=== PATIENT | female | born 1970 | race African-American/Black ===

== ENCOUNTER 2019-01-27 12:32 | Inpatient (IN) | payer OTHER ==
[~2019-01-27] VITALS: Ht 160 cm; Wt 52.2 kg
[2019-01-27] MEDS ORDERED: SODIUM CHLORIDE 0.9% 1,000 ML IV ONE (12:59)
[2019-01-27] MEDS ORDERED: ONDANSETRON HCL 4MG/2ML INJ IV STA (12:59)
[2019-01-27] MEDS ORDERED: MORPHINE SULFATE 4 MG/ML CPJ (NOT FOR IM USE) IV STA (12:59)
[2019-01-27 13:22] LABS: BASOPHILS % 1.1 % (0.0-2.0); EOSINOPHILS % 4.2 % (0.0-5.0); HEMATOCRIT. 40.2 % (36.0-48.0); HEMOGLOBIN. 13.6 g/dL (12.0-16.0); LYMPHOCYTES % 16.1 % (20.0-50.0); MEAN CORPUSCULAR HEMOGLOBIN 29.3 pg (28.0-32.0); MEAN CORPUSCULAR VOLUME 86.9 fL (81.0-99.0); MEAN PLATELET VOLUME 7.6 fl (7.4-10.4); NEUTROPHILS % 74.6 % (40.0-76.0); PLATELET 285 x1000/uL (130-400); RED BLOOD CELL COUNT 4.63 mill/uL (4.2-5.4); RED CELL DISTRIBUTION WIDTH 13.5 % (11.6-14.6)
[2019-01-27 13:28] LABS: CHLORIDE 106 mEq/L (98-107)
[2019-01-27 13:29] LABS: PROTHROMBIN TIME 10.6 sec (9.6-11.0)
[2019-01-27] MEDS ORDERED: LIDOCAINE HCL 1% 20ML VIAL (Pyxis) INJ ONE (14:09)
[2019-01-27] MEDS ORDERED: SODIUM BICARBONATE 4% (2.4MEQ) 5ML VIAL IV ONE (14:09)
[2019-01-27 14:43] LABS: HCG SCREEN NEGATIVE
[2019-01-27 16:45] VITALS: BP 116/75
[2019-01-27] MEDS ORDERED: CLONIDINE 0.1MG TABLET PO PRN (17:15)
[2019-01-27] MEDS ORDERED: ACETAMINOPHEN 650MG SUPP PR PRN (17:15)
[2019-01-27] MEDS ORDERED: POTA-9 MT (17:45)
[2019-01-27] MEDS ORDERED: DOCU-150 MT (17:45)
[2019-01-27] MEDS ORDERED: PANT40TA4 PO (17:45)
[2019-01-27] MEDS ORDERED: GABA-290 PO (17:50)
[2019-01-27] MEDS ORDERED: CARB100C4 PO (17:50)
[2019-01-27] MEDS ORDERED: FURO40TA5 PO (17:50)
[2019-01-27] MEDS ORDERED: CARB200T PO (17:50)
[2019-01-27] MEDS ORDERED: DIAZ10TA4 PO (17:50)
[2019-01-27] MEDS ORDERED: LINA290C PO (17:50)
[2019-01-27] MEDS ORDERED: ONDA8TAB6 PO (17:50)
[2019-01-27] MEDS ORDERED: HYDR8TAB44 PO (17:50)
[2019-01-27] MEDS: SODIUM CHLORIDE 0.9% 1,000 ML IV SCH ×2 (17:52→21:08)
[2019-01-27] MEDS: HYDROMORPHONE HCL/PF 2MG/ML CPJ IV PRN (18:06)
[2019-01-27 20:00] VITALS: BP 123/61
[2019-01-27] MEDS ORDERED: INFLUENZA VIRUS VACCINE(AFLURIA) 0.5ML SYR IM ONE (21:00)
[2019-01-27] MEDS ORDERED: PNEUMOCOCCAL 23-VAL P-SAC VAC 0.5 ML IM ONE (21:00)
[2019-01-27] MEDS: MORPHINE SULFATE 2 MG/ML CPJ (NOT FOR IM USE) IV PRN (21:10)
[2019-01-27] MEDS: ONDANSETRON HCL 4MG/2ML INJ IV PRN (21:10)
[2019-01-28] VITALS: BP 103/55
[2019-01-28] MEDS: HYDROMORPHONE HCL/PF 2MG/ML CPJ IV PRN ×6 (00:58→23:39)
[2019-01-28 04:00] VITALS: BP 112/84
[2019-01-28] MEDS: ONDANSETRON HCL 4MG/2ML INJ IV PRN ×2 (04:50→19:33)
[2019-01-28] MEDS: MORPHINE SULFATE 2 MG/ML CPJ (NOT FOR IM USE) IV PRN (04:51)
[2019-01-28 05:49] LABS: CHLORIDE 110 mEq/L (98-107)
[2019-01-28 05:54] LABS: BASOPHILS % 0.8 % (0.0-2.0); EOSINOPHILS % 7.2 % (0.0-5.0); HEMATOCRIT. 34.2 % (36.0-48.0); HEMOGLOBIN. 11.5 g/dL (12.0-16.0); LYMPHOCYTES % 22.9 % (20.0-50.0); MEAN CORPUSCULAR HEMOGLOBIN 29.4 pg (28.0-32.0); MEAN CORPUSCULAR VOLUME 87.5 fL (81.0-99.0); MONOCYTES % 5.8 % (2.0-8.0); NEUTROPHILS % 63.3 % (40.0-76.0); PLATELET 251 x1000/uL (130-400); RED BLOOD CELL COUNT 3.91 mill/uL (4.2-5.4); RED CELL DISTRIBUTION WIDTH 13.4 % (11.6-14.6)
[2019-01-28] MEDS ORDERED: SODIUM CHL 0.9% + KCL 20MEQ/L 1,000 ML IV SCH (07:45)
[2019-01-28] MEDS ORDERED: POTASSIUM CHLORIDE INJ 40 MEQ in SODIUM CHLORIDE 0.9% 500 ML IV SCH (09:00)
[2019-01-28] MEDS: MULTIVITAMINS,THER W-MINERALS TABLET PO SCH (09:05)
[2019-01-28] MEDS ORDERED: OXYCODONE HCL/ACETAMINOPHEN 5/325MG TABLET PO PRN (10:15)
[2019-01-28 12:00] VITALS: BP 133/71
[2019-01-28 16:00] VITALS: BP 119/70
[2019-01-28 20:00] VITALS: BP 121/67
[2019-01-29] VITALS: BP 126/67
[2019-01-29 04:00] VITALS: BP 136/79
[2019-01-29] MEDS: HYDROMORPHONE HCL/PF 2MG/ML CPJ IV PRN ×5 (04:15→20:52)
[2019-01-29] MEDS: ONDANSETRON HCL 4MG/2ML INJ IV PRN ×5 (04:15→20:51)
[2019-01-29 08:00] VITALS: BP 142/58
[2019-01-29] MEDS: MULTIVITAMINS,THER W-MINERALS TABLET PO SCH (08:49)
[2019-01-29 12:00] VITALS: BP 117/66
[2019-01-29 16:00] VITALS: BP 154/83
[2019-01-29 20:00] VITALS: BP 122/73
[2019-01-30] VITALS (7 sets, daily range): BP systolic 107–124; BP diastolic 54–77
[2019-01-30] MEDS: HYDROMORPHONE HCL/PF 2MG/ML CPJ IV PRN ×6 (00:09→17:12)
[2019-01-30] MEDS: ONDANSETRON HCL 4MG/2ML INJ IV PRN ×4 (00:10→13:14)
[2019-01-30] MEDS: MULTIVITAMINS,THER W-MINERALS TABLET PO SCH (09:00)
== END 2019-01-30 19:40 | disposition hospice, inpatient (51) | DRG 251 ==
LOC: ER 12:32 → 6EST 15:16 → EDBEDREQ 15:19 → EDBEDREQSVC 15:19 → ENRESERV 15:29
PROVIDERS: ADMIT Hospitalist; ATTEND Hospitalist
PROC: 02HV33Z Insertion of Infusion Device into Superior Vena Cava, Percutaneous Approach (ICD-10-PCS; principal; 2019-01-27)
PROC: B548ZZA Ultrasonography of Superior Vena Cava, Guidance (ICD-10-PCS; 2019-01-27)
PROC: B5181ZA Fluoroscopy of Superior Vena Cava using Low Osmolar Contrast, Guidance (ICD-10-PCS; 2019-01-27)
DX: R10.13 Epigastric pain (principal); C79.9 Secondary malignant neoplasm of unspecified site; C90.00 Multiple myeloma not having achieved remission; C18.9 Malignant neoplasm of colon, unspecified; Z51.5 Encounter for palliative care; R62.7 Adult failure to thrive; Z85.841 Personal history of malignant neoplasm of brain; Z85.038 Personal history of other malignant neoplasm of large intestine; Z68.20 Body mass index [BMI] 20.0-20.9, adult; Z88.8 Allergy status to other drugs, medicaments and biological substances
CPT/HCPCS: 36415; 36573; 71045; 83605; 84703; 90686; 90732; 93005; 99285; C1725; J1170; J2270; J2405; J3480; J3490; J7030; J7040; J7060

== ENCOUNTER 2019-02-20 13:46 | Inpatient (IN) | payer OTHER ==
[~2019-02-20] VITALS: Ht 162.6 cm; Wt 52.2 kg
[~2019-02-20 13:46] MED LIST: CARB100C4 PO; CARB200T PO; DIAZ10TA4 PO; DOCU-150 MT; FURO40TA5 PO; GABA-290 PO; HYDR8TAB44 PO; LINA290C PO; ONDA8TAB6 PO; PANT40TA4 PO; POTA-9 MT
[2019-02-20] MEDS ORDERED: ONDANSETRON HCL 4MG/2ML INJ IV STA (14:33)
[2019-02-20] MEDS ORDERED: SODIUM CHLORIDE 0.9% 1,000 ML IV ONE (14:33)
[2019-02-20] MEDS ORDERED: MORPHINE SULFATE 4 MG/ML CPJ (NOT FOR IM USE) IV STA (14:33)
[2019-02-20 14:59] LABS: EOSINOPHILS % 4.4 % (0.0-5.0); HEMATOCRIT. 36.1 % (36.0-48.0); LYMPHOCYTES % 16.8 % (20.0-50.0); MEAN CORPUSCULAR HEMOGLOBIN 29.1 pg (28.0-32.0); MEAN CORPUSCULAR VOLUME 87.7 fL (81.0-99.0); MEAN PLATELET VOLUME 7.8 fl (7.4-10.4); MONOCYTES % 8.2 % (2.0-8.0); NEUTROPHILS % 69.6 % (40.0-76.0); PLATELET 254 x1000/uL (130-400); RED BLOOD CELL COUNT 4.11 mill/uL (4.2-5.4); RED CELL DISTRIBUTION WIDTH 13.9 % (11.6-14.6)
[2019-02-20 15:03] LABS: CHLORIDE 106 mEq/L (98-107)
[2019-02-20 15:04] LABS: PARTIAL THROMBOPLASTIN TIME 27.9 sec (23.4-31.0); PROTHROMBIN TIME 10.7 sec (9.6-11.0)
[2019-02-20 15:11] LABS: HCG SCREEN NEGATIVE
[2019-02-20] MEDS ORDERED: MORPHINE SULFATE 4 MG/ML CPJ (NOT FOR IM USE) IV ONE (18:00)
[2019-02-20] MEDS ORDERED: DIPHENHYDRAMINE 50MG/ML VIAL IV ONE (18:00)
[2019-02-20 18:06] LABS: CLARITY URINE CLOUDY (CLEAR); COLOR URINE YELLOW (YELLOW); KETONES URINE NEGATIVE (NEGATIVE); LEUKOCYTE ESTERASE URINE 1+ (NEGATIVE); NITRITE URINE NEGATIVE (NEGATIVE); OCCULT BLOOD URINE NEGATIVE (NEGATIVE); PH URINE 7.5 (4.5-8.0); PROTEIN URINE NEGATIVE (NEGATIVE); SPECIFIC GRAVITY URINE 1.013 (1.005-1.030); UROBILINOGEN URINE 0.2 E.U./dL (0.2-1.0)
[2019-02-20] MEDS ORDERED: CEFTRIAXONE 1 G PREMIX 50 ML IV ONE (18:30)
[2019-02-20 22:00] VITALS: BP 170/82
[2019-02-20] MEDS ORDERED: HYDROCODONE/ACETAMINOPHEN 5/325MG TABLET PO PRN (22:15)
[2019-02-20] MEDS: ONDANSETRON HCL 4MG/2ML INJ IV PRN (23:13)
[2019-02-20] MEDS: HYDROMORPHONE HCL/PF 2MG/ML CPJ IV PRN (23:14)
[2019-02-21] VITALS: BP 175/71
[2019-02-21 04:00] VITALS: BP 115/82
[2019-02-21] MEDS: HYDROMORPHONE HCL/PF 2MG/ML CPJ IV PRN ×6 (04:09→22:06)
[2019-02-21 07:08] LABS: BASOPHILS % 1.1 % (0.0-2.0); EOSINOPHILS % 6.8 % (0.0-5.0); HEMATOCRIT. 32.5 % (36.0-48.0); HEMOGLOBIN. 10.9 g/dL (12.0-16.0); LYMPHOCYTES % 29.3 % (20.0-50.0); MEAN CORPUSCULAR HEMOGLOBIN 29.4 pg (28.0-32.0); MEAN CORPUSCULAR VOLUME 87.7 fL (81.0-99.0); MEAN PLATELET VOLUME 8.3 fl (7.4-10.4); MONOCYTES % 9.5 % (2.0-8.0); NEUTROPHILS % 53.3 % (40.0-76.0); PLATELET 250 x1000/uL (130-400); RED BLOOD CELL COUNT 3.71 mill/uL (4.2-5.4); RED CELL DISTRIBUTION WIDTH 14.1 % (11.6-14.6)
[2019-02-21 07:19] LABS: CHLORIDE 111 mEq/L (98-107)
[2019-02-21 08:00] VITALS: BP 115/55
[2019-02-21] MEDS: CARBAMAZEPINE 100MG TABLET CHEW PO SCH ×3 (08:15→15:58)
[2019-02-21] MEDS: ONDANSETRON HCL 4MG/2ML INJ IV PRN ×3 (08:16→19:02)
[2019-02-21] MEDS ORDERED: PNEUMOCOCCAL 23-VAL P-SAC VAC 0.5 ML IM ONE (10:00)
[2019-02-21] MEDS: DOCUSATE SODIUM 100MG CAPSULE PO SCH ×2 (10:09→15:58)
[2019-02-21] MEDS: MORPHINE SULFATE 15MG TABLET SR PO SCH ×2 (10:09→21:00)
[2019-02-21 12:00] VITALS: BP 117/63
[2019-02-21 16:00] VITALS: BP 110/53
[2019-02-21] MEDS ORDERED: CEFTRIAXONE 1 G PREMIX 50 ML IV SCH ×2 (18:00→21:00)
[2019-02-21 20:00] VITALS: BP 112/49
[2019-02-21] MEDS: CEFTRIAXONE 1 G PREMIX 50 ML IV SCH (22:04)
[2019-02-22] VITALS: BP 129/69
[2019-02-22] MEDS: HYDROMORPHONE HCL/PF 2MG/ML CPJ IV PRN ×7 (01:21→21:59)
[2019-02-22 04:00] VITALS: BP 128/67
[2019-02-22 08:00] VITALS: BP 125/71
[2019-02-22] MEDS: DOCUSATE SODIUM 100MG CAPSULE PO SCH ×2 (08:39→17:00)
[2019-02-22] MEDS: MORPHINE SULFATE 15MG TABLET SR PO SCH ×2 (08:39→20:42)
[2019-02-22] MEDS: CARBAMAZEPINE 100MG TABLET CHEW PO SCH ×3 (08:39→18:22)
[2019-02-22] MEDS: ONDANSETRON HCL 4MG/2ML INJ IV PRN ×3 (08:49→21:57)
[2019-02-22 12:00] VITALS: BP 121/59
[2019-02-22 16:00] VITALS: BP 110/60
[2019-02-22 17:28] LABS: HEMATOCRIT 35.2 % (36.0-48.0); HEMOGLOBIN 11.9 g/dL (12.0-16.0)
[2019-02-22 20:00] VITALS: BP 106/52
[2019-02-22] MEDS ORDERED: MORPHINE SULFATE 15MG TABLET SR PO ONE (20:18)
[2019-02-22] MEDS: CEFTRIAXONE 1 G PREMIX 50 ML IV SCH (20:26)
[2019-02-23] VITALS: BP 114/60
[2019-02-23] MEDS: HYDROMORPHONE HCL/PF 2MG/ML CPJ IV PRN ×7 (01:31→21:23)
[2019-02-23] MEDS: ONDANSETRON HCL 4MG/2ML INJ IV PRN ×4 (02:58→19:08)
[2019-02-23 04:00] VITALS: BP 117/72
[2019-02-23 07:13] LABS: BASOPHILS % 1.1 % (0.0-2.0); EOSINOPHILS % 8.1 % (0.0-5.0); HEMATOCRIT. 34.8 % (36.0-48.0); HEMOGLOBIN. 11.9 g/dL (12.0-16.0); LYMPHOCYTES % 32.5 % (20.0-50.0); MEAN CORPUSCULAR HEMOGLOBIN 29.3 pg (28.0-32.0); MEAN CORPUSCULAR VOLUME 85.7 fL (81.0-99.0); MEAN PLATELET VOLUME 8.2 fl (7.4-10.4); MONOCYTES % 7.6 % (2.0-8.0); NEUTROPHILS % 50.7 % (40.0-76.0); PLATELET 249 x1000/uL (130-400); RED BLOOD CELL COUNT 4.06 mill/uL (4.2-5.4)
[2019-02-23 07:25] LABS: CHLORIDE 105 mEq/L (98-107)
[2019-02-23 08:00] VITALS: BP 117/53
[2019-02-23] MEDS: CARBAMAZEPINE 100MG TABLET CHEW PO SCH ×3 (08:39→17:07)
[2019-02-23] MEDS: DOCUSATE SODIUM 100MG CAPSULE PO SCH ×2 (08:39→17:07)
[2019-02-23] MEDS: MORPHINE SULFATE 15MG TABLET SR PO SCH ×2 (09:47→21:00)
[2019-02-23 12:00] VITALS: BP 107/58
[2019-02-23 16:00] VITALS: BP 115/61
[2019-02-23 20:00] VITALS: BP 113/59
[2019-02-23] MEDS ORDERED: POTASSIUM CHLORIDE 20MEQ TABLET SR PO NR (20:15)
[2019-02-24] VITALS: BP 90/63
[2019-02-24] MEDS: ONDANSETRON HCL 4MG/2ML INJ IV PRN ×3 (00:31→20:17)
[2019-02-24] MEDS: HYDROMORPHONE HCL/PF 2MG/ML CPJ IV PRN ×5 (00:34→14:31)
[2019-02-24 04:00] VITALS: BP 128/60
[2019-02-24 07:18] LABS: BASOPHILS % 0.9 % (0.0-2.0); EOSINOPHILS % 6.7 % (0.0-5.0); HEMATOCRIT. 33.8 % (36.0-48.0); HEMOGLOBIN. 11.5 g/dL (12.0-16.0); MEAN CORPUSCULAR HEMOGLOBIN 29.3 pg (28.0-32.0); MEAN CORPUSCULAR VOLUME 86.6 fL (81.0-99.0); MEAN PLATELET VOLUME 8.4 fl (7.4-10.4); MONOCYTES % 7.9 % (2.0-8.0); NEUTROPHILS % 54.5 % (40.0-76.0); PLATELET 249 x1000/uL (130-400); RED BLOOD CELL COUNT 3.91 mill/uL (4.2-5.4); RED CELL DISTRIBUTION WIDTH 14.1 % (11.6-14.6)
[2019-02-24 07:59] LABS: CHLORIDE 109 mEq/L (98-107)
[2019-02-24 08:00] VITALS: BP 100/49
[2019-02-24 09:06] LABS: IMMUNOGLOBULIN A 187 mg/dL (87-352); IMMUNOGLOBULIN G 774 mg/dL (700-1600); IMMUNOGLOBULIN M 71 mg/dL (26-217)
[2019-02-24] MEDS: DOCUSATE SODIUM 100MG CAPSULE PO SCH ×2 (09:34→17:56)
[2019-02-24] MEDS: CARBAMAZEPINE 100MG TABLET CHEW PO SCH ×3 (09:34→17:56)
[2019-02-24] MEDS: MORPHINE SULFATE 15MG TABLET SR PO SCH ×2 (09:37→22:03)
[2019-02-24 12:00] VITALS: BP 119/56
[2019-02-24 16:00] VITALS: BP 115/52
[2019-02-24] MEDS ORDERED: HYDROMORPHONE HCL 4MG TABLET PO PRN (17:00)
[2019-02-24] MEDS: HYDROMORPHONE HCL 2MG TABLET PO PRN (17:58)
[2019-02-24] MEDS: LORAZEPAM 2MG/ML CPJ IV PRN (20:44)
[2019-02-25] VITALS: BP 107/65
[2019-02-25] MEDS: HYDROMORPHONE HCL 2MG TABLET PO PRN ×4 (01:12→21:39)
[2019-02-25 04:00] VITALS: BP 117/65
[2019-02-25 08:00] VITALS: BP 109/49
[2019-02-25] MEDS: CARBAMAZEPINE 100MG TABLET CHEW PO SCH ×3 (09:27→16:39)
[2019-02-25] MEDS: DOCUSATE SODIUM 100MG CAPSULE PO SCH ×2 (09:27→16:39)
[2019-02-25] MEDS: LORAZEPAM 2MG/ML CPJ IV PRN ×2 (09:27→16:38)
[2019-02-25] MEDS: MORPHINE SULFATE 15MG TABLET SR PO SCH (09:35)
[2019-02-25 12:00] VITALS: BP 112/49
[2019-02-25] MEDS: ONDANSETRON HCL 4MG/2ML INJ IV PRN (15:04)
[2019-02-25 16:00] VITALS: BP 137/54
[2019-02-25] MEDS ORDERED: ZOLPIDEM TARTRATE 5MG TABLET PO PRN (17:45)
[2019-02-25 20:00] VITALS: BP 127/66
[2019-02-26] VITALS: BP 131/79
[2019-02-26] MEDS: MORPHINE SULFATE 15MG TABLET SR PO SCH ×2 (03:02→08:32)
[2019-02-26 04:00] VITALS: BP 121/68
[2019-02-26 08:00] VITALS: BP 129/60
[2019-02-26] MEDS: CARBAMAZEPINE 100MG TABLET CHEW PO SCH ×3 (08:32→17:32)
[2019-02-26] MEDS: DOCUSATE SODIUM 100MG CAPSULE PO SCH ×2 (08:32→17:32)
[2019-02-26] MEDS: HYDROMORPHONE HCL 2MG TABLET PO PRN ×3 (11:20→23:38)
[2019-02-26] MEDS: LORAZEPAM 2MG/ML CPJ IV PRN (11:58)
[2019-02-26 12:00] VITALS: BP 122/55
[2019-02-26 16:00] VITALS: BP 133/73
[2019-02-26 20:00] VITALS: BP 111/44
[2019-02-26] MEDS ORDERED: LORAZEPAM 2MG/ML CPJ IV PRN (23:15)
[2019-02-27] VITALS: BP 117/63
[2019-02-27] MEDS: ONDANSETRON HCL 4MG/2ML INJ IV PRN (01:45)
[2019-02-27] MEDS: LORAZEPAM 2MG/ML CPJ IV PRN ×2 (01:45→10:39)
[2019-02-27 04:00] VITALS: BP 112/66
[2019-02-27] MEDS: HYDROMORPHONE HCL 2MG TABLET PO PRN (04:23)
[2019-02-27] MEDS ORDERED: HYDROCODONE/ACETAMINOPHEN 5/325MG TABLET PO PRN (07:30)
[2019-02-27 08:00] VITALS: BP 108/67
[2019-02-27] MEDS: DOCUSATE SODIUM 100MG CAPSULE PO SCH (09:29)
[2019-02-27] MEDS: CARBAMAZEPINE 100MG TABLET CHEW PO SCH (09:29)
[2019-02-27 12:00] VITALS: BP 123/52
[2019-02-27 13:10] VITALS: BP 123/52
== END 2019-02-27 15:20 | disposition home or self-care (01) | DRG 463 ==
LOC: ER 13:46 → 6EST 18:29 → ENRESERV 20:25 → 6EST 02-21 19:24
PROVIDERS: ADMIT Internal Medicine; ATTEND Internal Medicine
DX: N39.0 Urinary tract infection, site not specified (principal); C78.00 Secondary malignant neoplasm of unspecified lung; C78.89 Secondary malignant neoplasm of other digestive organs; C79.31 Secondary malignant neoplasm of brain; D64.9 Anemia, unspecified; G40.909 Epilepsy, unspecified, not intractable, without status epilepticus; E87.6 Hypokalemia; Z85.038 Personal history of other malignant neoplasm of large intestine; Z88.8 Allergy status to other drugs, medicaments and biological substances; Z79.899 Other long term (current) drug therapy; Z85.79 Personal history of other malignant neoplasms of lymphoid, hematopoietic and related tissues
CPT/HCPCS: 36415; 71045; 71250; 74176; 80048; 81003; 81025; 82378; 82784; 83880; 84484; 84703; 85014; 85018; 86334; 93005; 93970; 96361; 96365; 96375; 96376; 99285; J0696; J1170; J1200; J2060; J2270; J2405; J7030; J7040

== ENCOUNTER 2019-02-28 12:57 | Emergency (ER) | payer OTHER ==
[~2019-02-28] VITALS: Ht 165.1 cm; Wt 60.0 kg
[~2019-02-28 12:57] MED LIST changes: -FURO40TA5 PO; -HYDR8TAB44 PO
[2019-02-28] MEDS ORDERED: ACETAMINOPHEN 325MG TABLET PO STA (15:41)
[2019-02-28 16:11] LABS: BASOPHILS % 0.3 % (0.0-2.0); EOSINOPHILS % 1.8 % (0.0-5.0); HEMATOCRIT. 38.3 % (36.0-48.0); HEMOGLOBIN. 12.8 g/dL (12.0-16.0); LYMPHOCYTES % 10.1 % (20.0-50.0); MEAN CORPUSCULAR HEMOGLOBIN 29.2 pg (28.0-32.0); MEAN CORPUSCULAR VOLUME 87.4 fL (81.0-99.0); MEAN PLATELET VOLUME 8.5 fl (7.4-10.4); NEUTROPHILS % 82.8 % (40.0-76.0); PLATELET 255 x1000/uL (130-400); RED BLOOD CELL COUNT 4.38 mill/uL (4.2-5.4); RED CELL DISTRIBUTION WIDTH 14.3 % (11.6-14.6)
[2019-02-28 16:14] LABS: CHLORIDE 105 mEq/L (98-107)
[2019-02-28 16:15] LABS: HCG SCREEN NEGATIVE
[2019-02-28 16:18] LABS: ETHANOL BLOOD < 10 mg/dL
[2019-02-28] MEDS ORDERED: IOHEXOL-300 100 ML BOTTLE ONE (18:32)
[2019-02-28] MEDS ORDERED: KETOROLAC 60MG/2ML VIAL IM ONE (20:15)
[2019-02-28 21:25] VITALS: BP 115/68
== END 2019-02-28 21:40 | disposition home or self-care (01) ==
LOC: ER 12:57
DX: R10.84 Generalized abdominal pain (principal); R11.2 Nausea with vomiting, unspecified; Z79.899 Other long term (current) drug therapy; Z88.8 Allergy status to other drugs, medicaments and biological substances; Z88.9 Allergy status to unspecified drugs, medicaments and biological substances; C80.1 Malignant (primary) neoplasm, unspecified
CPT/HCPCS: 36415; 74177; 80053; 80320; 83690; 84703; 85025; 96372; 99284; J1885; Q9967; G0480

== ENCOUNTER 2019-05-14 00:13 | Inpatient (IN) | payer OTHER ==
[~2019-05-14] VITALS: Ht 165.1 cm; Wt 55.3 kg
[2019-05-14] VITALS (18 sets, daily range): BP systolic 82–121; BP diastolic 25–74
[~2019-05-14 00:13] MED LIST changes: -CARB100C4 PO; +CARB100C9 PO
[2019-05-14] MEDS ORDERED: SODIUM CHLORIDE 0.9% 1,000 ML IV ONE ×2 (00:47→05:10)
[2019-05-14] MEDS ORDERED: LORAZEPAM 2MG/ML CPJ IV STA (00:47)
[2019-05-14] MEDS ORDERED: ONDANSETRON HCL 4MG/2ML INJ IV STA (00:47)
[2019-05-14] MEDS ORDERED: OLANZAPINE 10 MG/VIAL IM STA (00:47)
[2019-05-14 01:06] LABS: BASOPHILS % 0.5 % (0.0-2.0); EOSINOPHILS % 1.3 % (0.0-5.0); HEMATOCRIT. 37.5 % (36.0-48.0); HEMOGLOBIN. 12.7 g/dL (12.0-16.0); LYMPHOCYTES % 18.5 % (20.0-50.0); MEAN CORPUSCULAR HEMOGLOBIN 29.3 pg (28.0-32.0); MEAN CORPUSCULAR VOLUME 86.7 fL (81.0-99.0); MEAN PLATELET VOLUME 7.5 fl (7.4-10.4); MONOCYTES % 6.4 % (2.0-8.0); NEUTROPHILS % 73.3 % (40.0-76.0); PLATELET 308 x1000/uL (130-400); RED BLOOD CELL COUNT 4.33 mill/uL (4.2-5.4); RED CELL DISTRIBUTION WIDTH 14.3 % (11.6-14.6)
[2019-05-14 01:09] LABS: CHLORIDE 102 mEq/L (98-107)
[2019-05-14 01:13] LABS: ETHANOL BLOOD < 10 mg/dL
[2019-05-14 01:33] LABS: BG BASE EXCESS 1.9 mmol/L (-2.0-2.0); BG CARBOXYHEMOGLOBIN 0.3 % (0.5-1.5); BG DEOXYHEMOGLOBIN 2.1 % (0.0-5.0); BG FRACTION INSPIRED OXYGEN 21; BG HCO3 ACT 25.8 mmol/L (22.0-26.0); BG METHEMOGLOBIN 0.1 % (0.0-1.5); BG OXYGEN SATURATION 97.9 % (92.0-98.5); BG OXYHEMOGLOBIN 97.5 % (94.0-97.0); BG PCO2 38.2 mmHg (35.0-45.0); BG PH 7.448 (7.350-7.450); BG PO2 108.3 mmHg (75.0-100.0); BG SAMPLE SITE LEFT BRACHIAL; BG TOTAL HEMOGLOBIN 12.6 g/dL (12.0-18.0); BG VENT MODE ROOM AIR
[2019-05-14 01:39] LABS: HCG SCREEN NEGATIVE
[2019-05-14] MEDS ORDERED: MIDAZOLAM HCL 2 MG/2 ML VIAL IV ONE (02:45)
[2019-05-14 02:50] LABS: CLARITY URINE CLEAR (CLEAR); COLOR URINE YELLOW (YELLOW); KETONES URINE NEGATIVE (NEGATIVE); LEUKOCYTE ESTERASE URINE NEGATIVE (NEGATIVE); NITRITE URINE NEGATIVE (NEGATIVE); OCCULT BLOOD URINE NEGATIVE (NEGATIVE); PH URINE 7.5 (4.5-8.0); PROTEIN URINE NEGATIVE (NEGATIVE); SPECIFIC GRAVITY URINE 1.013 (1.005-1.030); UROBILINOGEN URINE 0.2 E.U./dL (0.2-1.0)
[2019-05-14 02:59] LABS: *AMPHETAMINES SCREEN URINE NEGATIVE (NEGATIVE); *BARBITURATES SCREEN URINE NEGATIVE (NEGATIVE); *COCAINE SCREEN URINE NEGATIVE (NEGATIVE); METHADONE URINE SCREEN NEGATIVE (NEGATIVE); OPIATES URINE SCREEN NEGATIVE (NEGATIVE)
[2019-05-14 03:00] LABS: CANNABINOID URINE SCREEN NEGATIVE (NEGATIVE); PHENCYCLIDINE URINE SCREEN NEGATIVE (NEGATIVE)
[2019-05-14 03:03] LABS: *BENZODIAZEPINES SCREEN URINE PRESUMTIVE POSITIVE (NEGATIVE)
[2019-05-14] MEDS ORDERED: LORAZEPAM 2MG/ML CPJ IV PRN (10:00)
[2019-05-14 10:58] LABS: CREATINE KINASE 66 IU/L (26-192)
[2019-05-14] MEDS ORDERED: NOREPINEPHRINE 4MG/250ML PMX 250 ML IV ONE (11:00)
[2019-05-14] MEDS ORDERED: IPRATROPIUM/ALBUTEROL 0.5-3(2.5)MG/3ML NEB HHN PRN (17:00)
[2019-05-14] MEDS ORDERED: CEFTRIAXONE 1 G PREMIX 50 ML IV SCH (20:00)
[2019-05-14] MEDS: SODIUM CHLORIDE 0.9% 1,000 ML IV SCH (21:21)
[2019-05-15] VITALS (80 sets, daily range): BP systolic 78–158; BP diastolic 39–109
[2019-05-15] MEDS ORDERED: NOREPINEPHRINE 8 MG in DEXT 5% WATER 242 ML IV STA (03:31)
[2019-05-15] MEDS ORDERED: NOREPINEPHRINE 8 MG in DEXT 5% WATER 242 ML IV PRN (03:45)
[2019-05-15 05:44] LABS: BASOPHILS % 0.5 % (0.0-2.0); EOSINOPHILS % 1.9 % (0.0-5.0); HEMATOCRIT. 33.7 % (36.0-48.0); HEMOGLOBIN. 11.3 g/dL (12.0-16.0); LYMPHOCYTES % 21.9 % (20.0-50.0); MEAN CORPUSCULAR HEMOGLOBIN 29.3 pg (28.0-32.0); MEAN CORPUSCULAR VOLUME 87.6 fL (81.0-99.0); MEAN PLATELET VOLUME 7.5 fl (7.4-10.4); NEUTROPHILS % 69.7 % (40.0-76.0); PLATELET 262 x1000/uL (130-400); RED BLOOD CELL COUNT 3.85 mill/uL (4.2-5.4); RED CELL DISTRIBUTION WIDTH 14.4 % (11.6-14.6)
[2019-05-15 06:28] LABS: CHLORIDE 112 mEq/L (98-107)
[2019-05-15] MEDS ORDERED: POTASSIUM CHLORIDE 20MEQ TABLET SR PO SCH (11:00)
[2019-05-15] MEDS: MIDODRINE HCL 5MG TABLET PO SCH ×2 (11:27→16:41)
[2019-05-15] MEDS: IPRATROPIUM/ALBUTEROL 0.5-3(2.5)MG/3ML NEB HHN SCH (14:48)
[2019-05-15] MEDS: SODIUM CHLORIDE 0.9% 1,000 ML IV SCH (15:21)
[2019-05-15] MEDS: KETOROLAC 30MG/ML VIAL IV PRN ×2 (16:41→23:03)
[2019-05-15] MEDS: CEFTRIAXONE 1 G PREMIX 50 ML IV SCH (20:00)
[2019-05-15] MEDS ORDERED: HYDROMORPHONE HCL/PF 2MG/ML CPJ IV PRN (20:45)
[2019-05-16] VITALS (70 sets, daily range): BP systolic 80–179; BP diastolic 6–134
[2019-05-16] MEDS: KETOROLAC 30MG/ML VIAL IV PRN (03:42)
[2019-05-16 06:05] LABS: BASOPHILS % 0.6 % (0.0-2.0); CHLORIDE 109 mEq/L (98-107); EOSINOPHILS % 2.2 % (0.0-5.0); HEMATOCRIT. 38.5 % (36.0-48.0); HEMOGLOBIN. 12.6 g/dL (12.0-16.0); LYMPHOCYTES % 13.9 % (20.0-50.0); MEAN CORPUSCULAR HEMOGLOBIN 28.7 pg (28.0-32.0); MEAN CORPUSCULAR VOLUME 87.8 fL (81.0-99.0); MEAN PLATELET VOLUME 7.3 fl (7.4-10.4); MONOCYTES % 6.7 % (2.0-8.0); NEUTROPHILS % 76.6 % (40.0-76.0); PLATELET 318 x1000/uL (130-400); RED BLOOD CELL COUNT 4.39 mill/uL (4.2-5.4); RED CELL DISTRIBUTION WIDTH 14.5 % (11.6-14.6)
[2019-05-16] MEDS: IPRATROPIUM/ALBUTEROL 0.5-3(2.5)MG/3ML NEB HHN SCH (08:33)
[2019-05-16] MEDS: MIDODRINE HCL 5MG TABLET PO SCH ×3 (08:35→16:55)
[2019-05-16] MEDS ORDERED: ALPRAZOLAM 0.5 MG TABLET PO NR (16:15)
[2019-05-16] MEDS: ACETAMINOPHEN 325MG TABLET PO PRN ×2 (16:55→22:16)
[2019-05-16] MEDS: SODIUM CHLORIDE 0.9% 1,000 ML IV SCH ×3 (18:21→21:00)
[2019-05-16] MEDS: CEFTRIAXONE 1 G PREMIX 50 ML IV SCH (20:00)
[2019-05-17] VITALS (23 sets, daily range): BP systolic 77–120; BP diastolic 23–75
[2019-05-17 04:22] LABS: BASOPHILS % 0.7 % (0.0-2.0); EOSINOPHILS % 0.9 % (0.0-5.0); HEMATOCRIT. 32.4 % (36.0-48.0); HEMOGLOBIN. 10.9 g/dL (12.0-16.0); LYMPHOCYTES % 9.5 % (20.0-50.0); MEAN CORPUSCULAR HEMOGLOBIN 29.8 pg (28.0-32.0); MEAN CORPUSCULAR VOLUME 88.1 fL (81.0-99.0); MEAN PLATELET VOLUME 7.1 fl (7.4-10.4); MONOCYTES % 6.9 % (2.0-8.0); PLATELET 214 x1000/uL (130-400); RED BLOOD CELL COUNT 3.67 mill/uL (4.2-5.4); RED CELL DISTRIBUTION WIDTH 14.6 % (11.6-14.6)
[2019-05-17 04:54] LABS: CHLORIDE 111 mEq/L (98-107)
[2019-05-17] MEDS: SODIUM CHLORIDE 0.9% 1,000 ML IV SCH ×2 (06:52→14:20)
[2019-05-17] MEDS: MIDODRINE HCL 5MG TABLET PO SCH ×3 (08:35→16:52)
[2019-05-17] MEDS: ONDANSETRON HCL 4MG/2ML INJ IV PRN ×2 (09:32→19:55)
[2019-05-17] MEDS: CEFTRIAXONE 1 G PREMIX 50 ML IV SCH (19:55)
[2019-05-17] MEDS: ACETAMINOPHEN 325MG TABLET PO PRN (21:50)
[2019-05-18] VITALS (18 sets, daily range): BP systolic 99–132; BP diastolic 54–89
[2019-05-18] MEDS: ONDANSETRON HCL 4MG/2ML INJ IV PRN ×4 (03:49→23:56)
[2019-05-18 05:43] LABS: HEMATOCRIT. 34.8 % (36.0-48.0); HEMOGLOBIN. 11.6 g/dL (12.0-16.0); MEAN CORPUSCULAR HEMOGLOBIN 29.2 pg (28.0-32.0); MEAN PLATELET VOLUME 7.8 fl (7.4-10.4); PLATELET 239 x1000/uL (130-400); RED BLOOD CELL COUNT 3.96 mill/uL (4.2-5.4); RED CELL DISTRIBUTION WIDTH 14.7 % (11.6-14.6)
[2019-05-18 05:58] LABS: CHLORIDE 103 mEq/L (98-107)
[2019-05-18] MEDS: MIDODRINE HCL 5MG TABLET PO SCH ×3 (08:36→17:29)
[2019-05-18] MEDS ORDERED: PROCHLORPERAZINE 10MG/2ML VIAL IV PRN (09:45)
[2019-05-18] MEDS ORDERED: MAGNESIUM/ALUMINUM HYDROXIDE/SIMETHICONE 30ML UDC PO PRN (09:45)
[2019-05-18] MEDS: ACETAMINOPHEN 325MG TABLET PO PRN (11:25)
[2019-05-18 11:58] LABS: PLATELET ESTIMATE NORMAL
[2019-05-18] MEDS: SODIUM CHLORIDE 0.9% 1,000 ML IV SCH ×3 (15:05→23:00)
[2019-05-18] MEDS: CEFTRIAXONE 1 G PREMIX 50 ML IV SCH (21:30)
[2019-05-19] VITALS (10 sets, daily range): BP systolic 113–131; BP diastolic 63–80
[2019-05-19] MEDS: ONDANSETRON HCL 4MG/2ML INJ IV PRN ×2 (06:05→12:57)
[2019-05-19 07:01] LABS: BASOPHILS % 0.4 % (0.0-2.0); EOSINOPHILS % 0.1 % (0.0-5.0); HEMATOCRIT. 32.2 % (36.0-48.0); LYMPHOCYTES % 8.8 % (20.0-50.0); MEAN CORPUSCULAR HEMOGLOBIN 29.9 pg (28.0-32.0); MEAN CORPUSCULAR VOLUME 87.7 fL (81.0-99.0); MONOCYTES % 6.4 % (2.0-8.0); NEUTROPHILS % 84.3 % (40.0-76.0); RED BLOOD CELL COUNT 3.67 mill/uL (4.2-5.4); RED CELL DISTRIBUTION WIDTH 14.7 % (11.6-14.6)
[2019-05-19 07:44] LABS: CHLORIDE 103 mEq/L (98-107)
[2019-05-19] MEDS: SODIUM CHLORIDE 0.9% 1,000 ML IV SCH (08:43)
[2019-05-19] MEDS: MIDODRINE HCL 5MG TABLET PO SCH ×2 (08:44→12:57)
[2019-05-19 08:48] LABS: PLATELET 197 x1000/uL (130-400)
[2019-05-19 08:49] LABS: MEAN PLATELET VOLUME 8.3 fl (7.4-10.4)
[2019-05-20] MEDS ORDERED: FURO-152 PO (17:17)
[2019-05-20] MEDS ORDERED: KEPP250 MT (17:17)
== END 2019-05-19 16:38 | disposition home or self-care (01) | DRG 720 ==
LOC: ER 00:13 → MICUSO 05:35 → EDBEDREQTM 05:37 → EDBEDREQ 05:37 → ENRESERV 07:17 → CANRESERV 07:17 → EDBEDREQSVC 10:19 → ENRESERV 17:32 → 3WST 05-18 11:18
PROVIDERS: ADMIT Internal Medicine; ATTEND Internal Medicine
DX: A41.9 Sepsis, unspecified organism (principal); R65.21 Severe sepsis with septic shock; G93.41 Metabolic encephalopathy; E87.2 Acidosis; I07.1 Rheumatic tricuspid insufficiency; T68.XXXA Hypothermia, initial encounter; C90.00 Multiple myeloma not having achieved remission; F22 Delusional disorders; I50.9 Heart failure, unspecified; F29 Unspecified psychosis not due to a substance or known physiological condition; G40.909 Epilepsy, unspecified, not intractable, without status epilepticus; E86.0 Dehydration; F32.9 Major depressive disorder, single episode, unspecified; R55 Syncope and collapse; F41.9 Anxiety disorder, unspecified; F11.23 Opioid dependence with withdrawal; Z85.038 Personal history of other malignant neoplasm of large intestine; Z76.5 Malingerer [conscious simulation]; Z85.07 Personal history of malignant neoplasm of pancreas; Z85.841 Personal history of malignant neoplasm of brain; Z79.899 Other long term (current) drug therapy
CPT/HCPCS: 36415; 36600; 71045; 74018; 80048; 80053; 80305; 80307; 80320; 80329; 81003; 82140; 82375; 82550; 82805; 82962; 83036; 83605; 83930; 84145; 84484; 84703; 85025; 86850; 86900; 93005; 94640; 96361; 96374; 96375; 99285; C1893; J0696; J1885; J2060; J2250; J2405; J3490; J7030; J7060; J7620; A4315; G0480

== ENCOUNTER 2019-05-19 22:36 | Inpatient (IN) | payer MEDICAID, OTHER ==
[~2019-05-19] VITALS: Ht 160 cm; Wt 54.4 kg
[2019-05-19] MEDS ORDERED: SODIUM CHLORIDE 0.9% 1,000 ML IV ONE (23:15)
[2019-05-19] MEDS ORDERED: LEVETIRACETAM 1000MG/100ML 100 ML IV ONE (23:45)
[2019-05-19] MEDS ORDERED: LORAZEPAM 2MG/ML CPJ IV ONE (23:45)
[2019-05-19 23:57] LABS: BASOPHILS % 0.5 % (0.0-2.0); EOSINOPHILS % 0.5 % (0.0-5.0); HEMATOCRIT. 34.1 % (36.0-48.0); HEMOGLOBIN. 11.4 g/dL (12.0-16.0); LYMPHOCYTES % 7.4 % (20.0-50.0); MEAN CORPUSCULAR HEMOGLOBIN 29.3 pg (28.0-32.0); MEAN CORPUSCULAR VOLUME 87.3 fL (81.0-99.0); MEAN PLATELET VOLUME 7.2 fl (7.4-10.4); MONOCYTES % 8.5 % (2.0-8.0); NEUTROPHILS % 83.1 % (40.0-76.0); PLATELET 299 x1000/uL (130-400); RED CELL DISTRIBUTION WIDTH 14.3 % (11.6-14.6)
[2019-05-20 00:03] LABS: CHLORIDE 104 mEq/L (98-107)
[2019-05-20 03:20] LABS: CLARITY URINE CLOUDY (CLEAR); COLOR URINE YELLOW (YELLOW); KETONES URINE NEGATIVE (NEGATIVE); LEUKOCYTE ESTERASE URINE NEGATIVE (NEGATIVE); NITRITE URINE NEGATIVE (NEGATIVE); OCCULT BLOOD URINE NEGATIVE (NEGATIVE); PH URINE 8.5 (4.5-8.0); PROTEIN URINE TRACE (NEGATIVE); SPECIFIC GRAVITY URINE 1.013 (1.005-1.030); UROBILINOGEN URINE 0.2 E.U./dL (0.2-1.0)
[2019-05-20 04:04] LABS: *AMPHETAMINES SCREEN URINE NEGATIVE (NEGATIVE); *BARBITURATES SCREEN URINE NEGATIVE (NEGATIVE); *COCAINE SCREEN URINE NEGATIVE (NEGATIVE)
[2019-05-20 04:05] LABS: CANNABINOID URINE SCREEN NEGATIVE (NEGATIVE); METHADONE URINE SCREEN NEGATIVE (NEGATIVE); OPIATES URINE SCREEN NEGATIVE (NEGATIVE); PHENCYCLIDINE URINE SCREEN NEGATIVE (NEGATIVE)
[2019-05-20 04:06] LABS: *BENZODIAZEPINES SCREEN URINE PRESUMTIVE POSITIVE (NEGATIVE)
[2019-05-20] MEDS ORDERED: MORPHINE SULFATE 2 MG/ML CPJ (NOT FOR IM USE) IV PRN (10:30)
[2019-05-20] MEDS: SODIUM CHLORIDE 0.9% 1,000 ML IV SCH ×3 (14:00→23:30)
[2019-05-20 16:55] VITALS: BP 109/56
[2019-05-20] MEDS ORDERED: KEPP250 MT (17:17)
[2019-05-20] MEDS ORDERED: FURO-152 PO (17:17)
[2019-05-20 18:51] VITALS: BP 122/47
[2019-05-20 20:00] VITALS: BP 120/71
[2019-05-20] MEDS: LORAZEPAM 2MG/ML CPJ IV PRN (20:00)
[2019-05-20] MEDS ORDERED: POTASSIUM CHLORIDE 20MEQ TABLET SR PO NR (20:00)
[2019-05-20] MEDS: ONDANSETRON HCL 4MG/2ML INJ IV PRN (20:08)
[2019-05-20] MEDS: KETOROLAC 30MG/ML VIAL IV PRN (20:38)
[2019-05-20] MEDS: LEVETIRACETAM 500MG TABLET PO SCH (21:50)
[2019-05-21] VITALS: BP 111/69
[2019-05-21 04:00] VITALS: BP 108/55
[2019-05-21] MEDS: LORAZEPAM 2MG/ML CPJ IV PRN ×4 (05:43→18:33)
[2019-05-21] MEDS: KETOROLAC 30MG/ML VIAL IV PRN ×3 (05:58→20:36)
[2019-05-21 06:59] LABS: HEMATOCRIT. 32.7 % (36.0-48.0); MEAN CORPUSCULAR HEMOGLOBIN 29.5 pg (28.0-32.0); MEAN CORPUSCULAR VOLUME 87.5 fL (81.0-99.0); MEAN PLATELET VOLUME 7.8 fl (7.4-10.4); PLATELET 239 x1000/uL (130-400); RED BLOOD CELL COUNT 3.74 mill/uL (4.2-5.4); RED CELL DISTRIBUTION WIDTH 14.5 % (11.6-14.6)
[2019-05-21 07:32] LABS: CHLORIDE 110 mEq/L (98-107)
[2019-05-21 08:00] VITALS: BP 130/71
[2019-05-21] MEDS: LEVETIRACETAM 500MG TABLET PO SCH ×2 (09:28→20:36)
[2019-05-21 12:00] VITALS: BP 118/70
[2019-05-21] MEDS: SODIUM CHLORIDE 0.9% 1,000 ML IV SCH (13:01)
[2019-05-21] MEDS: ONDANSETRON HCL 4MG/2ML INJ IV PRN (14:20)
[2019-05-21 14:35] LABS: PLATELET ESTIMATE NORMAL
[2019-05-21 16:00] VITALS: BP 106/61
[2019-05-21 20:00] VITALS: BP 112/64
[2019-05-22] VITALS: BP 124/69
[2019-05-22] MEDS: SODIUM CHLORIDE 0.9% 1,000 ML IV SCH (02:00)
[2019-05-22] MEDS: KETOROLAC 30MG/ML VIAL IV PRN ×3 (02:49→22:24)
[2019-05-22] MEDS: ONDANSETRON HCL 4MG/2ML INJ IV PRN ×3 (02:49→22:25)
[2019-05-22 04:00] VITALS: BP 104/55
[2019-05-22 08:00] VITALS: BP 108/61
[2019-05-22] MEDS: LEVETIRACETAM 500MG TABLET PO SCH ×2 (08:42→22:24)
[2019-05-22 10:28] LABS: BASOPHILS % 0.6 % (0.0-2.0); EOSINOPHILS % 2.2 % (0.0-5.0); HEMATOCRIT. 33.3 % (36.0-48.0); HEMOGLOBIN. 11.2 g/dL (12.0-16.0); LYMPHOCYTES % 19.1 % (20.0-50.0); MEAN CORPUSCULAR HEMOGLOBIN 29.3 pg (28.0-32.0); MEAN CORPUSCULAR VOLUME 87.5 fL (81.0-99.0); MEAN PLATELET VOLUME 7.5 fl (7.4-10.4); MONOCYTES % 5.9 % (2.0-8.0); NEUTROPHILS % 72.2 % (40.0-76.0); PLATELET 267 x1000/uL (130-400); RED BLOOD CELL COUNT 3.81 mill/uL (4.2-5.4); RED CELL DISTRIBUTION WIDTH 14.2 % (11.6-14.6)
[2019-05-22 10:42] LABS: CHLORIDE 107 mEq/L (98-107)
[2019-05-22] MEDS: LORAZEPAM 2MG/ML CPJ IV PRN (12:35)
[2019-05-22 12:37] VITALS: BP 101/68
[2019-05-22] MEDS ORDERED: POTASSIUM CHLORIDE 20MEQ TABLET SR PO NR (12:45)
[2019-05-22 16:44] VITALS: BP 108/57
[2019-05-22] MEDS ORDERED: KEPP500 MT (19:11)
[2019-05-22 20:00] VITALS: BP 108/57
[2019-05-23] VITALS (7 sets, daily range): BP systolic 94–127; BP diastolic 43–68
[2019-05-23] MEDS: SODIUM CHLORIDE 0.9% 1,000 ML IV SCH ×2 (04:28→09:59)
[2019-05-23] MEDS: ONDANSETRON HCL 4MG/2ML INJ IV PRN ×2 (06:46→15:40)
[2019-05-23] MEDS: KETOROLAC 30MG/ML VIAL IV PRN ×2 (06:46→13:31)
[2019-05-23 07:36] LABS: BASOPHILS % 0.6 % (0.0-2.0); EOSINOPHILS % 2.5 % (0.0-5.0); HEMATOCRIT. 31.5 % (36.0-48.0); HEMOGLOBIN. 10.6 g/dL (12.0-16.0); LYMPHOCYTES % 20.9 % (20.0-50.0); MEAN CORPUSCULAR HEMOGLOBIN 29.5 pg (28.0-32.0); MEAN CORPUSCULAR VOLUME 87.6 fL (81.0-99.0); MEAN PLATELET VOLUME 7.7 fl (7.4-10.4); PLATELET 280 x1000/uL (130-400); RED CELL DISTRIBUTION WIDTH 14.3 % (11.6-14.6)
[2019-05-23 08:10] LABS: CHLORIDE 110 mEq/L (98-107)
[2019-05-23] MEDS: LEVETIRACETAM 500MG TABLET PO SCH (09:59)
== END 2019-05-23 19:50 | disposition home health service (06) | DRG 48 ==
LOC: ER 23:24 → 6WST 05-20 02:51 → ENRESERV 05-20 14:45 → 6WST 05-20 21:45
PROVIDERS: ADMIT Internal Medicine; ATTEND Internal Medicine
DX: G90.8 Other disorders of autonomic nervous system (principal); C79.31 Secondary malignant neoplasm of brain; E87.1 Hypo-osmolality and hyponatremia; G40.909 Epilepsy, unspecified, not intractable, without status epilepticus; D64.9 Anemia, unspecified; E86.0 Dehydration; E87.6 Hypokalemia; Z85.07 Personal history of malignant neoplasm of pancreas; Z88.8 Allergy status to other drugs, medicaments and biological substances; Z79.899 Other long term (current) drug therapy
CPT/HCPCS: 36415; 71045; 80048; 80053; 80305; 81003; 83880; 84484; 85025; 93005; 93306; 96375; 96376; 97116; 97162; 99291; C1893; J1885; J1953; J2060; J2270; J2405; J7030; A4315